=== PATIENT | male | born 1985 | race Caucasian/White ===

== ENCOUNTER → 2018-04-16 | Outpatient (CLI) | payer OTHER | LOC: MHCPAIN 08:06 | DX: G89.29 Other chronic pain (principal); G58.8 Other specified mononeuropathies; M79.2 Neuralgia and neuritis, unspecified | CPT/HCPCS: G0463 ==

== ENCOUNTER → 2018-04-18 | Outpatient (CLI) | payer OTHER | LOC: MHCPAIN 14:06 | DX: M79.2 Neuralgia and neuritis, unspecified (principal); G58.8 Other specified mononeuropathies | CPT/HCPCS: J1040 ==

== ENCOUNTER → 2018-07-18 | Outpatient (CLI) | payer OTHER | LOC: MHCPAIN 08:27 | DX: G89.29 Other chronic pain (principal); M79.18 Myalgia, other site; M79.2 Neuralgia and neuritis, unspecified; R07.89 Other chest pain | CPT/HCPCS: G0463 ==